=== PATIENT | male | born 1960 | race Caucasian/White ===

== ENCOUNTER 2021-05-18 06:31 | Inpatient (IN) ==
[~2021-05-18 06:31] MED LIST: Buffered Lidocaine 1% SYRIN 1 ml INTRADERM ONE; Lactated Ringers 1000 ml BAG 1,000 ML IV SCH
[2021-05-18] MEDS ORDERED: ceFAZolin 2 GM PREMIX 2 GM/50 ML BAG ONE (06:52)
[2021-05-18] MEDS ORDERED: Midazolam 2 mg/2 ml VIAL 1 mg/ml 2 ml VIAL (2 mg) ONE (07:09)
[2021-05-18] MEDS ORDERED: Phenylephrine IV 10 MG/ML 1 ml VIAL ONE (07:10)
[2021-05-18] MEDS ORDERED: fentaNYL 100 mcg/2 ml 50 MCG/ML VIAL IV PRN (08:53)
[2021-05-18] MEDS ORDERED: DiMENhydriNATE IV 50 mg/ml 1 ml VIAL IV PUSH PRN (08:53)
[2021-05-18] MEDS ORDERED: Naloxone 0.4 mg VIAL 0.4 mg/ml 1 ml VIAL IV PRN (08:53)
[2021-05-18] MEDS ORDERED: Lidocaine 2% PF 5 ML VIAL ONE (09:47)
[2021-05-18] MEDS ORDERED: Bupivacaine 0.5% SDV PF 30ML VIAL ONE (09:47)
[2021-05-18] MEDS ORDERED: Ondansetron 4 mg VIAL 2 MG/ML 2 ml VIAL ONE (09:56)
[2021-05-18] MEDS ORDERED: Ondansetron ODT 4 mg TAB 4 MG TAB PO PRN (10:08)
[2021-05-18] MEDS ORDERED: Morphine 2 MG/ML SYRINGE IV PRN (10:08)
[2021-05-18] MEDS ORDERED: Magnesium Hydroxide LIQ 30 ML UDC PO PRN (10:08)
[2021-05-18] MEDS ORDERED: Ondansetron 4 mg VIAL 2 MG/ML 2 ml VIAL IV PRN (10:08)
[2021-05-18] MEDS ORDERED: diPHENhydraMINE 25 mg TAB PO PRN (10:08)
[2021-05-18] MEDS ORDERED: Lactulose 30 ml UDC PO PRN (10:08)
[2021-05-18] MEDS ORDERED: diPHENhydraMINE IV 50 MG/ML 1 ml VIAL (BENADRYL) IV PRN (10:08)
[2021-05-18] MEDS ORDERED: Acetaminophen IV 1 GM/100ML 100 ML IV ONE (10:24)
[2021-05-18] MEDS ORDERED: Propofol 10 MG/ML 20 ML BTL ONE (10:26)
[2021-05-18] MEDS ORDERED: EPHEDrine (Pressors) 50 MG/ML VIAL ONE (10:30)
[2021-05-18] MEDS ORDERED: ROPIVACAINE 5 MG/ML 30 ML BTL (0.5%) ONE (11:26)
[2021-05-18] MEDS ORDERED: DiMENhydriNATE IV 50 mg/ml 1 ml VIAL ONE (12:37)
[2021-05-18] MEDS: oxyCODONE/Acetamin 5/325 mg TAB PO PRN ×3 (13:55→21:50)
[2021-05-18] MEDS: Lactated Ringers 1000 ml BAG 1,000 ML IV SCH (13:56)
[2021-05-18] MEDS: ceFAZolin 1 GM ADVAN 1 GM in NS 0.9% 50 ML 50 ML IVPB SCH (17:08)
[2021-05-18] MEDS: Magnesium Hydroxide LIQ 30 ML UDC PO SCH (21:49)
[2021-05-19] MEDS: Lactated Ringers 1000 ml BAG 1,000 ML IV SCH (00:32)
[2021-05-19] MEDS: ceFAZolin 1 GM ADVAN 1 GM in NS 0.9% 50 ML 50 ML IVPB SCH ×2 (01:48→08:41)
[2021-05-19 05:17] LABS: Hematocrit 39 % (42-52); Hemoglobin 13.7 g/dL (14.0-18.0); Mean Platelet Volume 8.2 fL (7.4-10.4); Platelet Count 173 10^3/uL (150-450)
[2021-05-19 05:41] LABS: Calcium 8.6 mg/dL (8.6-10.3); EGFR African American 97.2 (>60); EGFR Non-African American 80.3 (>60); Potassium 3.6 mmol/L (3.5-5.0)
[2021-05-19] MEDS: oxyCODONE/Acetamin 5/325 mg TAB PO PRN ×2 (06:30→10:43)
[2021-05-19] MEDS: Magnesium Hydroxide LIQ 30 ML UDC PO SCH (08:41)
[2021-05-19] MEDS ORDERED: Vitamin THERAPEUTIC TAB PO SCH (09:00)
[2021-05-19 11:18] VITALS: BP 115/76
== END 2021-05-19 16:00 | disposition home or self-care (01) | DRG 301 ==
LOC: AA 06:31 → SSU 13:31
PROVIDERS: ADMIT Orthopaedic Surgery Adult Reconstructive Orthopaedic Surgery; ATTEND Orthopaedic Surgery Adult Reconstructive Orthopaedic Surgery